=== PATIENT | female | born 1995 | race Caucasian/White ===

== ENCOUNTER 2016-07-16 13:11 | Observation (INO) ==
[2016-07-16 13:37] LABS: Basophils # 0.1 K/mcL (0.0-0.2); Basophils % 0.6 %; Eosinophils # 0.2 K/mcL (0.0-0.6); Eosinophils % 2.2 %; Hematocrit 39.6 % (35.3-44.9); Hemoglobin 13.6 g/dL (11.5-15.4); Immature Granulocytes % 0.4 % (0-4); Lymphocytes # 3.4 K/mcL (0.6-4.6); Lymphocytes % 42.1 %; Mean Corpuscular HGB Conc 34.3 g/dL (31.6-35.5); Mean Corpuscular Volume 87.4 fL (83.0-100.0); Mean Platelet Volume 9.6 fL (9.4-12.4); Monocytes # 0.6 K/mcL (0.0-1.3); Neutrophils # 3.9 K/mcL (1.6-8.9); Platelet Count 273 K/mcL (140-400); Red Blood Count 4.53 M/mcL (3.82-4.97); Red Cell Distribution Width 13.2 % (11.5-14.5); Segmented Neutrophils % 47.7 %
[2016-07-16 13:51] LABS: Alanine Aminotransferase 10 Units/L (0-55); Albumin 3.8 g/dL (3.5-5.0); Albumin/Globulin Ratio 1.3 (1.1-2.2); Alkaline Phosphatase 54 Units/L (38-126); Aspartate Amino Transferase 11 Units/L (5-34); BUN/Creatinine Ratio 9 (6-26); Bilirubin,Total 0.8 mg/dL (0.2-1.2); Blood Urea Nitrogen 6 mg/dL (7-20); Calcium 9.1 mg/dL (8.6-10.8); Carbon Dioxide 25 mEq/L (19-29); Chloride 106 mEq/L (98-109); Globulin 2.9 g/dL (2.4-3.5); Glucose 102 mg/dL (70-99); Osmolality,Calculated 284 (280-300); Potassium 3.7 mEq/L (3.5-4.5); Sodium 138 mEq/L (136-145); Total Protein 6.7 g/dL (6.0-8.3); eGFR For African Americans > 60 (> 60); eGFR For Non-African Americans > 60 (> 60)
[2016-07-16 14:10] LABS: INR 1.1; Prothrombin Time 11.6 Seconds (9.4-12.1)
[2016-07-16 14:13] LABS: Activated Partial Thrombo Time 30.6 Seconds (26.0-36.0)
--- NOTE | 2016-07-16 16:41 | Emergency Department Note ---
Disposition Clinical Impression: Miscarriage Disposition: Home, Self-Care Condition: Good Instructions: Spontaneous Miscarriage (ED) Reasons to Return/Additional Instructions: Dizziness shortness of breath chest pain worsening symptoms increased bleeding. Any Gen. concerns. If you are going through more than 1 pad per hour over 8 hours, return to the emergency department for reevaluation. Referrals: NO,PCP [Primary Care Provider] - Forms: ED Satisfaction Letter HPI - General Chief complaint: ED Vaginal Bleeding Stated complaint: prego, vaginal bleeding Time Seen by Provider: 07/16/16 13:21 Source: patient Limitations: no limitations Nursing Notes Reviewed: Yes Vital Signs Reviewed: Yes - History of Present Illness HPI Narrative: Concern about status. - Related Data Allergies Allergy/AdvReac Type Severity Reaction Status Date / Time No Known Allergies Allergy Verified 07/16/16 13:24 PMH - Social History Smoking Status: Current every day smoker Alcohol use: Reports: none Drug use: Reports: none Physical Exam - General Limitations: no limitations General appearance: alert - Head Head exam: atraumatic, normocephalic, normal inspection - Eye Eye exam: Present: normal appearance, PERRL, EOMI - ENT ENT exam: normal exam, normal oropharynx, mucous membranes moist - Neck Neck exam: Present: normal inspection, full ROM, trachea midline - Chest Chest inspection: Present: normal inspection, symmetric chest wall rise - Respiratory Respiratory exam: Present: normal lung sounds bilaterally - Cardiovascular Cardiovascular exam: Present: regular rate, normal rhythm, normal heart sounds - Abdominal Exam Abdominal exam: Present: soft, Non-Tender. Absent: tenderness, distention, guarding, rebound, rigidity - Female External Exam: Present: bleeding Speculum Exam: Present: cervical OS closed, vaginal bleeding (Copious amount of vaginal bleeding with multiple large clots.) - Extremities Exam Extremities exam: Present: normal inspection, full ROM. Absent: tenderness, pedal edema - Back Exam Back exam: Present: normal inspection, full ROM. Absent: tenderness - Neurological Exam Neurological exam: Present: alert, oriented X3 - Psychiatric Psychiatric exam: Present: normal affect, normal mood - Skin Skin exam: Present: warm, dry, intact, normal color Course - Consultations Consultation #1: Discussed this patient with DR. Block who is covering for Dr Luo. Advised monitoring the patient if symptoms persist the patient will need further workup. Vital Signs Temperature 98.9 F 07/16/16 13:21 Pulse Rate 95 07/16/16 13:21 Respiratory Rate 20 07/16/16 13:21 Blood Pressure 136/73 07/16/16 13:21 O2 Sat by Pulse Oximetry 100 07/16/16 13:21 Temperature 98.9 F 07/16/16 13:21 Pulse Rate 95 07/16/16 13:21 Respiratory Rate 20 07/16/16 13:21 Blood Pressure 136/73 07/16/16 13:21 O2 Sat by Pulse Oximetry 100 07/16/16 13:21 OB/Uterine Contractions - Differential Diagnosis Likely: premature labor, abruption, ectopic - Lab Data Lab results reviewed: Yes I reviewed the patient's lab results. Result diagrams: 07/16/16 13:30 07/16/16 13:30 Lab Results 07/16/16 07/16/16 07/16/16 Range/Units 13:30 13:30 13:30 WBC 8.1 (4.3-11.1) K/mcL RBC 4.53 (3.82-4.97) M/mcL Hgb 13.6 (11.5-15.4) g/dL Hct 39.6 (35.3-44.9) % MCV 87.4 (83.0-100.0) fL MCH 30.0 (28.0-33.3) pg MCHC 34.3 (31.6-35.5) g/dL RDW 13.2 (11.5-14.5) % Plt Count 273 (140-400) K/mcL MPV 9.6 (9.4-12.4) fL Immature Gran % 0.4 (0-4) % Seg Neutrophils % 47.7 % Lymphocytes % 42.1 % Monocytes % 7.0 % Eosinophils % 2.2 % Basophils % 0.6 % Neutrophils # 3.9 (1.6-8.9) K/mcL Lymphocytes # 3.4 (0.6-4.6) K/mcL Monocytes # 0.6 (0.0-1.3) K/mcL Eosinophils # 0.2 (0.0-0.6) K/mcL Basophils # 0.1 (0.0-0.2) K/mcL PT (9.4-12.1) Seconds INR APTT (26.0-36.0) Seconds Sodium 138 (136-145) mEq/L Potassium 3.7 (3.5-4.5) mEq/L Chloride 106 (98-109) mEq/L Carbon Dioxide 25 (19-29) mEq/L BUN 6 L (7-20) mg/dL Creatinine 0.70 (0.57-1.11) mg/dL Est GFR ( Amer) > 60 (> 60) Est GFR (Non-Af Amer) > 60 (> 60) BUN/Creatinine Ratio 9 (6-26) Glucose 102 H (70-99) mg/dL Calculated Osmolality 284 (280-300) Calcium 9.1 (8.6-10.8) mg/dL Total Bilirubin 0.8 (0.2-1.2) mg/dL AST 11 (5-34) Units/L ALT 10 (0-55) Units/L Alkaline Phosphatase 54 (38-126) Units/L Serum Total Protein 6.7 (6.0-8.3) g/dL Albumin 3.8 (3.5-5.0) g/dL Globulin 2.9 (2.4-3.5) g/dL Albumin/Globulin Ratio 1.3 (1.1-2.2) Beta HCG, Quant 1501 H (0-4) mIU/ml Blood Type A POSITIVE 07/16/16 Range/Units 13:50 WBC (4.3-11.1) K/mcL RBC (3.82-4.97) M/mcL Hgb (11.5-15.4) g/dL Hct (35.3-44.9) % MCV (83.0-100.0) fL MCH (28.0-33.3) pg MCHC (31.6-35.5) g/dL RDW (11.5-14.5) % Plt Count (140-400) K/mcL MPV (9.4-12.4) fL Immature Gran % (0-4) % Seg Neutrophils % % Lymphocytes % % Monocytes % % Eosinophils % % Basophils % % Neutrophils # (1.6-8.9) K/mcL Lymphocytes # (0.6-4.6) K/mcL Monocytes # (0.0-1.3) K/mcL Eosinophils # (0.0-0.6) K/mcL Basophils # (0.0-0.2) K/mcL PT 11.6 (9.4-12.1) Seconds INR 1.1 APTT 30.6 (26.0-36.0) Seconds Sodium (136-145) mEq/L Potassium (3.5-4.5) mEq/L Chloride (98-109) mEq/L Carbon Dioxide (19-29) mEq/L BUN (7-20) mg/dL Creatinine (0.57-1.11) mg/dL Est GFR ( Amer) (> 60) Est GFR (Non-Af Amer) (> 60) BUN/Creatinine Ratio (6-26) Glucose (70-99) mg/dL Calculated Osmolality (280-300) Calcium (8.6-10.8) mg/dL Total Bilirubin (0.2-1.2) mg/dL AST (5-34) Units/L ALT (0-55) Units/L Alkaline Phosphatase (38-126) Units/L Serum Total Protein (6.0-8.3) g/dL Albumin (3.5-5.0) g/dL Globulin (2.4-3.5) g/dL Albumin/Globulin Ratio (1.1-2.2) Beta HCG, Quant (0-4) mIU/ml Blood Type - Radiology Data Radiology results reviewed: Yes I reviewed the patient's radiology results. Obstetrics Ultrasound 07/16/16 15:20 IMPRESSION: Limited transabdominal only examination demonstrates fluid within the endometrial canal and endocervical canal, with echogenic material within the vagina compatible with blood clot and/or expelled products of conception. Soft tissue structure within the endometrial canal may represent remnant of a pole. There is no normal appearing intrauterine gestational sac with pole and yolk sac. These findings are most compatible with spontaneous in progress D/ / Nikhil Manning MD / Nikhil Manning MD Interpreting Provider: Nikhil Manning MD
[2016-07-16 17:50] LABS: Hemoglobin 9.2 g/dL (11.5-15.4)
[2016-07-16] MEDS ORDERED: Ringers Solution, Lactated 1,000 ML ONE (17:59)
[2016-07-16] MEDS ORDERED: 0.9 % Sodium Chloride 2,000 ML ONE (18:08)
--- NOTE | 2016-07-16 18:09 | Emergency Department Note ---
Disposition Clinical Impression: Miscarriage Disposition: Admitted As Inpatient Condition: Good Instructions: Spontaneous Miscarriage (ED) Reasons to Return/Additional Instructions: Dizziness shortness of breath chest pain worsening symptoms increased bleeding. Any Gen. concerns. If you are going through more than 1 pad per hour over 8 hours, return to the emergency department for reevaluation. Referrals: NO,PCP [Primary Care Provider] - Forms: ED Satisfaction Letter HPI - General Chief complaint: ED Vaginal Bleeding Stated complaint: prego, vaginal bleeding Time Seen by Provider: 07/16/16 13:21 Source: patient Limitations: no limitations - History of Present Illness HPI Narrative: Concern about status. Patient presents with complaint of vaginal bleeding that started earlier today. Patient was using the bathroom and she noted that she had some clots in toilet. Patient presented to the emergency department for evaluation. Patient denies any pain denies dizziness. Patient states that when she was going to the triage room she noted that she had increased bleeding. Patient was placed in the bed. She denies vision changes, patient denies any trauma. - Related Data Allergies Allergy/AdvReac Type Severity Reaction Status Date / Time No Known Allergies Allergy Verified 07/16/16 13:24 All systems ED: reviewed and negative except as stated. PMH - Past Medical History RESOURCE MANAGER history: Reports: No RESOURCE MANAGER History - Social History Smoking Status: Current every day smoker Alcohol use: Reports: none Drug use: Reports: none Physical Exam - General Limitations: no limitations General appearance: alert - Head Head exam: atraumatic, normocephalic, normal inspection - Eye Eye exam: Present: normal appearance, PERRL, EOMI - ENT ENT exam: normal exam, normal oropharynx, mucous membranes moist - Neck Neck exam: Present: normal inspection, full ROM, trachea midline - Chest Chest inspection: Present: normal inspection, symmetric chest wall rise - Respiratory Respiratory exam: Present: normal lung sounds bilaterally - Cardiovascular Cardiovascular exam: Present: regular rate, normal rhythm, normal heart sounds - Abdominal Exam Abdominal exam: Present: soft, Non-Tender. Absent: tenderness, distention, guarding, rebound, rigidity Course Course Narrative: Patient was up for discharge. Prior to discharge patient blood pressure systolic dropped in the 80s and heart rate dropped in the 40s. Patient became diaphoretic and pale. I was called to the bedside for evaluation with IV fluids were started and called for RESOURCE MANAGER assistance for this patient. RESOURCE MANAGER came and evaluated the patient determinant that the patient will need to go to the or for D&C. Vital Signs Temperature 98.9 F 07/16/16 13:21 Pulse Rate 95 07/16/16 13:21 Respiratory Rate 20 07/16/16 13:21 Blood Pressure 136/73 07/16/16 13:21 O2 Sat by Pulse Oximetry 100 07/16/16 13:21 Temperature 98.9 F 07/16/16 13:21 Pulse Rate 87 07/16/16 16:39 Respiratory Rate 18 07/16/16 16:39 Blood Pressure 122/67 07/16/16 16:39 O2 Sat by Pulse Oximetry 97 07/16/16 16:39 OB/Uterine Contractions - Differential Diagnosis Likely: hemorrhage - Lab Data Result diagrams: 07/16/16 17:40 07/16/16 13:30 Lab Results 07/16/16 07/16/16 07/16/16 Range/Units 13:30 13:30 13:30 WBC 8.1 (4.3-11.1) K/mcL RBC 4.53 (3.82-4.97) M/mcL Hgb 13.6 (11.5-15.4) g/dL Hct 39.6 (35.3-44.9) % MCV 87.4 (83.0-100.0) fL MCH 30.0 (28.0-33.3) pg MCHC 34.3 (31.6-35.5) g/dL RDW 13.2 (11.5-14.5) % Plt Count 273 (140-400) K/mcL MPV 9.6 (9.4-12.4) fL Immature Gran % 0.4 (0-4) % Seg Neutrophils % 47.7 % Lymphocytes % 42.1 % Monocytes % 7.0 % Eosinophils % 2.2 % Basophils % 0.6 % Neutrophils # 3.9 (1.6-8.9) K/mcL Lymphocytes # 3.4 (0.6-4.6) K/mcL Monocytes # 0.6 (0.0-1.3) K/mcL Eosinophils # 0.2 (0.0-0.6) K/mcL Basophils # 0.1 (0.0-0.2) K/mcL PT (9.4-12.1) Seconds INR APTT (26.0-36.0) Seconds Sodium 138 (136-145) mEq/L Potassium 3.7 (3.5-4.5) mEq/L Chloride 106 (98-109) mEq/L Carbon Dioxide 25 (19-29) mEq/L BUN 6 L (7-20) mg/dL Creatinine 0.70 (0.57-1.11) mg/dL Est GFR ( Amer) > 60 (> 60) Est GFR (Non-Af Amer) > 60 (> 60) BUN/Creatinine Ratio 9 (6-26) Glucose 102 H (70-99) mg/dL Calculated Osmolality 284 (280-300) Calcium 9.1 (8.6-10.8) mg/dL Total Bilirubin 0.8 (0.2-1.2) mg/dL AST 11 (5-34) Units/L ALT 10 (0-55) Units/L Alkaline Phosphatase 54 (38-126) Units/L Serum Total Protein 6.7 (6.0-8.3) g/dL Albumin 3.8 (3.5-5.0) g/dL Globulin 2.9 (2.4-3.5) g/dL Albumin/Globulin Ratio 1.3 (1.1-2.2) Beta HCG, Quant 1501 H (0-4) mIU/ml Miscellaneous Test Blood Type A POSITIVE Antibody Screen TNP Crossmatch See Detail 07/16/16 07/16/16 07/16/16 Range/Units 13:50 17:00 17:40 WBC (4.3-11.1) K/mcL RBC (3.82-4.97) M/mcL Hgb 9.2 L D (11.5-15.4) g/dL Hct 27.0 L (35.3-44.9) % MCV (83.0-100.0) fL MCH (28.0-33.3) pg MCHC (31.6-35.5) g/dL RDW (11.5-14.5) % Plt Count (140-400) K/mcL MPV (9.4-12.4) fL Immature Gran % (0-4) % Seg Neutrophils % % Lymphocytes % % Monocytes % % Eosinophils % % Basophils % % Neutrophils # (1.6-8.9) K/mcL Lymphocytes # (0.6-4.6) K/mcL Monocytes # (0.0-1.3) K/mcL Eosinophils # (0.0-0.6) K/mcL Basophils # (0.0-0.2) K/mcL PT 11.6 (9.4-12.1) Seconds INR 1.1 APTT 30.6 (26.0-36.0) Seconds Sodium (136-145) mEq/L Potassium (3.5-4.5) mEq/L Chloride (98-109) mEq/L Carbon Dioxide (19-29) mEq/L BUN (7-20) mg/dL Creatinine (0.57-1.11) mg/dL Est GFR ( Amer) (> 60) Est GFR (Non-Af Amer) (> 60) BUN/Creatinine Ratio (6-26) Glucose (70-99) mg/dL Calculated Osmolality (280-300) Calcium (8.6-10.8) mg/dL Total Bilirubin (0.2-1.2) mg/dL AST (5-34) Units/L ALT (0-55) Units/L Alkaline Phosphatase (38-126) Units/L Serum Total Protein (6.0-8.3) g/dL Albumin (3.5-5.0) g/dL Globulin (2.4-3.5) g/dL Albumin/Globulin Ratio (1.1-2.2) Beta HCG, Quant (0-4) mIU/ml Miscellaneous Test Blood Type Antibody Screen Crossmatch Critical Care Time Total Critical Care Time: 30 Attestation: Critical care performed: Time is exclusive of separately billable procedures. Time includes: direct patient care, patient reassessment, coordination of patient care, interpretation of data (laboratory data, radiology data, and respiratory data), review of patient's medical records, medical consultation and documentation of patient care. Procedures included in critical care time: Procedures excluded from critical care time:
--- NOTE | 2016-07-16 18:20 | OB/GYN History & Physical ---
Date of Encounter: 07/16/16 Time of Encounter: 18:17 Assessment and Plan (1) Miscarriage Current visit: Yes Status: Acute 20yo F, , appx 10wks gestation. Serum B-HCG 1501. Hypotensive with systolic in the 90's. Fluid responsive. Patient had 2L complete with 3rd L hanging upon entering OR suite. Initial H&H 13.6. Appx 4 hours later, repeat H&H 9.2. Type & Screen completed. Plan for emergent suction D&C. Consent obtained and on file. History of Present Illness Chief complaint: vaginal bleeding HPI: Ms. May is a 20 year old female who presented from home to [facility] ER with CC: vaginal bleeding, concern regarding status. . Appx 10 weeks gestation. Has not yet established with OB for care. Patient and her had been trying to become for appx 2 years. Initial H&H in the ER was Hb 13.6. B-HCG 1501. Ultrasound was limited 2/2 fluid in endometrial and endocervical canal. Patient was initially stable. Just prior to discharge from the ER, she became bradycardic in the mid 30's, pale, diaphoretic, hypotensive in the high 80's systolic. ER took measures to stabilize and OB was paged stat to her room. Speculum exam in the ER showed profuse bright red blood with large clot. After discussing with the patient, it was agreed upon to move to an emergent D&C. Patient received to labor and delivery from [facility] ER. HR on transfer was in the low 90's, BP was 91 systolic after 1L IVF with 2nd and 3rd liters hanging. Patient taken directly into L&D OR for suction D&C. Past Med Surg Social Fam HX - Past Medical History Medical history: no medical history Psychiatric history: no psych history - Social History Smoking Status: Current every day smoker Smokeless Tobacco Status: No Alcohol use: none Drug use: none Medications and Allergies Allergies No Known Allergies Allergy (Verified 07/16/16 13:24) Review of System OB - Constitutional Constitutional ROS IM: lethargy, no headache(s) - Nose, mouth, and throat Nose, mouth and throat: no dizziness - Cardiovascular Cardiovascular: diaphoresis, no chest pain, no dyspnea, no edema, no palpitations - Gastrointestinal Gastrointestinal: no abdominal pain, no constipation, no cramping, no diarrhea, no heartburn, no nausea, no vomiting - Genitourinary Genitourinary: abnormal vaginal bleeding, no dysuria, no flank pain Exam - Vital Signs Vital signs: Initial Vital Signs Temp Pulse Resp BP Pulse Ox 98.9 F 95 20 136/73 100 07/16/16 13:21 07/16/16 13:21 07/16/16 13:21 07/16/16 13:21 07/16/16 13:21 - Constitutional Constitutional: well developed, well nourished, moderate distress (hypotensive with IVF resuscication ongoing during exam), other (flush, pale) - HEENT HEENT: Normocephaly, Mucus Membranes Moist - Neck Neck exam: normal inspection - Lungs Respiratory exam: CTAB - Cardiovascular Cardiovascular exam: RRR, +S1, +S2 - Abdomen Abdomen: Present: bowel sounds normal, non tender. Absent: guarding noted - Extremities Extremities exam: normal inspection, radial pulses palpable and symetrical - Vulva Vulva: bilateral: normal - Vagina Vagina: Present: discharge (liquid bright red blood with slightly larger than golf-ball sized clot) - Cervix Cervix: Present: discharge (bright red blood with clots) - Anus/Rectum Anus/Rectum: Present: normal perianal skin Results Result Diagrams: 07/16/16 17:40 07/16/16 13:30 Abnormal lab results Hgb 9.2 g/dL (11.5-15.4) L D 07/16/16 17:40 Hct 27.0 % (35.3-44.9) L 07/16/16 17:40 BUN 6 mg/dL (7-20) L 07/16/16 13:30 Glucose 102 mg/dL (70-99) H 07/16/16 13:30 Beta HCG, Quant 1501 mIU/ml (0-4) H 07/16/16 13:30 All other labs normal. US - abdomen: report reviewed, image reviewed
[2016-07-16] MEDS ORDERED: Ipratropium/Albuterol Neb 3 ML ONE (18:39)
[2016-07-16] MEDS ORDERED: Ipratropium/Albuterol Neb 3 ML IH ONE (18:39)
[2016-07-16] MEDS ORDERED: Ondansetron 4 MG/2 ML VIAL ONE (18:56)
[2016-07-16] MEDS ORDERED: Lidocaine -MPF 2% 5 ML VIAL INFILT ONE (18:56)
[2016-07-16] MEDS ORDERED: *HR* Succinylcholine 200 MG/10 ML VIAL IVP ONE (18:56)
[2016-07-16] MEDS ORDERED: *HR* FentaNYL (PF) 250 MCG/5 ML VIAL ONE (18:56)
[2016-07-16] MEDS ORDERED: Dexamethasone 4 MG/ML VIAL ONE (18:56)
[2016-07-16] MEDS ORDERED: *HR* HYDROcodone/Acet 5/325 mg TABLET PO ONE (19:18)
[2016-07-16] MEDS ORDERED: Ibuprofen 600 MG TABLET PO PRN (19:19)
[2016-07-16] MEDS ORDERED: Propofol 500 MG/50 ML INFUS..BTL ONE (19:20)
--- NOTE | 2016-07-16 19:25 | OB/GYN Procedure Note ---
Suction D&C - Diagnosis Date of procedure: 07/16/16 Pre-op diagnosis: incomplete , other (Acute hemorrhage, orthostasis) Post-op diagnosis: same - Procedure Procedure: suction D&C Surgeon: Niels Luo Anesthesia Type: General Estimated blood loss (cc): 150 Complications: none Fluids: crystalloid Specimen: products of conception Disposition: other (Labor and delivery PACU) Narrative: Patient is a 20-year-old 1 para 0 female approximately 8-10 weeks gestation presented emergency room was diagnosed with incomplete . Ultrasound, showed collapsing gestational sac. She was stable with hemoglobin 13.1 cm discharged for outpatient follow-up and she begin having acute hemorrhage became diaphoretic pale increasingly hypotensive and tachycardic. Exam revealed bright red vaginal bleeding with large clots in the vagina decision was made to proceed with emergent suction D&C. She had 2 large-bore IVs in place and she was typed and crossed for 2 units. Admitting hemoglobin was drawn and was later found to be 9.2. Patient was aware operative risks and signed appropriate consent. Description of procedure: Patient was taken operating room where general anesthesia was administered she was prepped and draped in usual sterile fashion bladder was drained of clear urine. Suction was used to suction several cc of blood clot from the vagina. 8 mm suction curet was passed through the cervix after placement single tooth tenaculum on the cervix. 8 mm suction curet was passed several times revealing pratt and laureano tissue as well as clot. Gentle sharp curettage was performed revealing smooth uterine cavity. Suction curettage was then performed again several times revealing typical blood clot. This point tenaculum was removed hemostasis was ensured. All sponge and counts are correct patient was taken recovery in good condition.
--- NOTE | 2016-07-16 19:28 | Discharge Summary ---
Outpatient Proc Discharge Plan - Plan Prescriptions: Ibuprofen [Motrin] 600 mg PO Q6HR PRN #30 tablet PRN Reason: post op pain HYDROcodone/Acet 5/325 mg [[place] 5-325 mg] 1 tab PO Q4H PRN #20 tab PRN Reason: post op pain Home Medications: HYDROcodone/Acet 5/325 mg [[place] 5-325 mg] 1 tab PO Q4H PRN #20 tab 07/16/16 [Rx ] Ibuprofen [Motrin] 600 mg PO Q6HR PRN #30 tablet 07/16/16 [Rx]
[2016-07-16] MEDS ORDERED: Ringers Solution, Lactated 1,000 ML IVC SCH (19:30)
[2016-07-16 21:53] LABS: Hemoglobin 9.8 g/dL (11.5-15.4)
[2016-07-16 22:19] VITALS: BP 116/56
[2016-07-16] MEDS ORDERED: Methylergonovine 0.2 MG/ML AMPUL IM ONE (23:14)
== END 2016-07-16 23:15 | disposition home or self-care (01) ==
LOC: EMEROO 13:11 → 1NENULAB 13:11 → 1NENUOBS 20:02
PROVIDERS: ADMIT Obstetrics & Gynecology; ATTEND Obstetrics & Gynecology

== ENCOUNTER → 2017-06-08 12:06 | Observation (INO) ==
--- NOTE | 2017-06-08 11:40 | OB/GYN Progress Note ---
Date of Encounter: 06/08/17 Time of Encounter: 11:35 - Assessment and Plan (1) 31 weeks gestation of Current Visit: Yes Status: Acute Observation and continuous monitoring (2) Twin gestation in third trimester Current Visit: Yes Status: Acute Continuous monitoring Patient is to see MF next week d/t twin gestation Qualifiers: Multiple gestation type: monochorionic and diamniotic Qualified Code(s): O30.033 - Twin , monochorionic/diamniotic, third trimester (3) Heartburn during in third trimester Current Visit: Yes Status: Acute GI cocktail given with effective results Will Rx pepcid. Patient informed to use Tums OTC if problem persists To call LABORATORY CHEMICAL ASSISTANT for continued discomfort that Pepcis/ Tums does not resolve. Discharge home. Subjective - Subjective Principal diagnosis: Abdominal pain Interval history: Aylin is a 21 year-old who presents today at 31w5d for complaint of upper abdominal pain that started today. She states it is a burning, intermittent pain just below the sternum. Patient states she has never had heartburn so she is unsure if that could be the cause of the pain. She did not take anything like Tylenol of Tums to attempt to ease the pain. Aylin was given a GI cocktail at 1100 and reports not feeling the burning pain since then. She has an appointment with [facility] next Sunday d/t twin gestation. Aylin was informed of the s/s of heartburn and that she could try Tums OTC and if the issue continues she should consult Dr. Block. Antepartum ROS: movement normal, no loss of fluid, no vaginal bleeding, no contractions Objective - Vital Signs Vital Signs: Intake and Output 06/07/17 06/08/17 06/08/17 23:59 07:59 15:59 Other: Weight 100.891 kg Patient Weight 06/08/17 23:59 Weight 100.891 kg - Exam FHR: category 1 FHR comments: A: 150 BPM moderate variability B: 125 BPM moderate variability Auscultation: bilateral: wheezes (Patient is a smoker) Abdomen: Present: normal appearance, soft, gravid Uterus: Present: normal Cervical dilation: Deferred
[~2017-06-08 12:06] MED LIST: GI Cocktail 40 ML EACH PO ONE
== END | disposition home or self-care (01) ==
LOC: 1NENULAB
PROVIDERS: ADMIT Obstetrics & Gynecology; ATTEND Obstetrics & Gynecology

== ENCOUNTER 2017-06-12 04:50 | Inpatient (IN) ==
[2017-06-12] MEDS ORDERED: Ringers Solution, Lactated 1,000 ML ONE ×2 (05:01→06:05)
[2017-06-12] MEDS ORDERED: Ringers Solution, Lactated 1,000 ML IVC SCH ×2 (05:30→11:38)
--- NOTE | 2017-06-12 05:39 | OB/GYN History & Physical ---
Date of Encounter: 06/12/17 Time of Encounter: 05:29 Assessment and Plan (1) Decreased movement affecting management of in third trimester Current visit: Yes Status: Acute NST Vaginal Exam Urinalysis and reflex culture IV Fluids Anticipate discharge home with labor precautions Follow up in office as scheduled and PRN Qualifiers: Fetus number: fetus 2 of multiple gestation Qualified Code(s): O36.8132 - Decreased movements, third trimester, fetus 2 (2) 32 weeks gestation of Current visit: Yes Status: Acute (3) Twin gestation in third trimester Current visit: No Status: Acute Qualifiers: Multiple gestation type: monochorionic and diamniotic Qualified Code(s): O30.033 - Twin , monochorionic/diamniotic, third trimester History of Present Illness Chief complaint: Decreased movement HPI: Ms. May is a 21 year old at 32 weeks and 2 days gestation. This is a Denali/Di twin with female fetuses. She has had no complications with this . She is seen by Dr Block and [facility]. The most recent ultrasound with MFM showed concordant growth without evidence of TTT/TAPS. She states she has had decreased movement for the past 24 hours. She admitted to smoking a cigarette prior to her arrival to the hospital. She denies headache, vision changes, epigastric pain, leaking of fluid, vaginal bleeding, contractions, and cramping. She states that she does have a dull suprapubic pressure. Past Med Surg Social Fam HX - Past Medical History Medical history: no medical history Psychiatric history: no psych history - Past Surgical History Surgical History: no surgical history - Social History Smoking Status: Current every day smoker Smokeless Tobacco Status: No Alcohol use: none Drug use: none Obstetrical History - Pregnancies : 2 Para: 0 Term: 0 : 0 Ab's: 1 Livin Medications and Allergies HYDROcodone/Acet 5/325 mg [[place] 5-325 mg] 1 tab PO Q4H PRN #20 tab 07/16/16 [Rx ] Ibuprofen [Motrin] 600 mg PO Q6HR PRN #30 tablet 07/16/16 [Rx] Famotidine [Pepcid] 10 mg PO BID #60 tablet 06/08/17 [Rx] 3 Allergy/AdvReac Type Severity Reaction Status Date / Time No Known Allergies Allergy Verified 07/16/16 13:24 Review of System OB All systems PM: reviewed and no additional remarkable complaints except as stated Exam - Constitutional Constitutional: well developed, well nourished, no acute distress, obese - HEENT HEENT: Normocephaly, Mucus Membranes Moist - Lungs Respiratory exam: CTAB - Cardiovascular Cardiovascular exam: RRR - Abdomen Abdomen: Present: gravid, non tender - Extremities Extremities exam: normal capillary refill, normal inspection, radial pulses palpable and symmetrical Deep Tendon Reflex Grade: 2+ Normal - Comments Comments: Dr Crabtree presents to the room for bedside ultrasound for verification of heart rates Twin A FHTs 140's Twin B FHTs 140's Results All other labs normal. - VTE Reasons for not Prescribing Prophylaxis: Treatment not Indicated - Low risk for VTE
[2017-06-12 06:23] LABS: Bilirubin,Urine Negative (Negative); Blood,Urine Negative (Negative); Clarity,Urine Cloudy (Clear); Color,Urine Yellow (Yellow); Glucose,Urine (UA) Normal (Normal); Ketones,Urine Negative (Negative); Leukocyte Esterase,Urine Small (Negative); Nitrite,Urine Negative (Negative); Protein,Urine Negative (Neg-Trace); Urobilinogen,Urine Normal (Normal)
[2017-06-12 06:28] LABS: Amphetamine Screen,Urine Negative ng/mL (Cutoff=1000); Barbiturate Screen,Urine Negative ng/mL (Cutoff=200); Benzodiazepines Screen,Urine Negative ng/mL (Cutoff=200); Cannabinoid Screen,Urine Negative ng/mL (Cutoff = 50); Cocaine Screen,Urine Negative ng/mL (Cutoff= 300); Opiate Screen,Urine Negative ng/mL (Cutoff=300); Phencyclidine Screen,Urine Negative ng/mL (Cutoff=25)
[2017-06-12 06:34] LABS: Bacteria,Urine Many per hpf (None-Few); Hyaline Casts,Urine None Seen per lpf (None-Few); RBC,Urine 0-3 per hpf (0-3); Squamous Epithelial Cell,Urine Many per lpf (None-Few); WBC,Urine 15-30 per hpf (0-3)
--- NOTE | 2017-06-12 07:45 | OB Labor Progress Note ---
Date of Encounter: 06/12/17 Time of Encounter: 07:45 Labor Progress Note - Subjective Subjective: Patient states she is getting very uncomfortable his been spent cervical change. heart tones Nexplanon reassuring twin A is 140s with loss of beat -to-beat variability during the is 140s with repetitive variable decelerations. Patient does not want a vaginal delivery and with the category 2 strip recommended section. I did not feel trying to control her contractions with magnesium sulfate is appropriate due to nonreassuring heart tones on both a and B with decreased movement. Patient will be scheduled for primary low transverse section - Cervix Cervix: 3/80/0 Vtx/Vtx by US - Heart Tones Heart Tones: Twin A heart tones 140s decreased [id number]-kk-ldcm variability 2140s with repetitive decelerations on able to determine the type due to difficulty monitoring contractions. - Armorel Armorel: Contractions every 2 minutes - Plan Plan: Operative the patient for primary low transverse section
[2017-06-12] MEDS ORDERED: *HR* Phenylephrine 10 MG/ML VIAL ONE (07:51)
[2017-06-12] MEDS ORDERED: *HR* Oxytocin 10 UNIT/ML VIAL IM ONE ×2 (07:51→12:25)
[2017-06-12] MEDS ORDERED: Metoclopramide 10 MG/2 ML VIAL IVP ONE (07:53)
[2017-06-12] MEDS ORDERED: Famotidine 20 MG/2 ML VIAL IVP ONE (07:53)
[2017-06-12] MEDS ORDERED: *HR* FentaNYL (PF) 100 MCG/2 ML VIAL ONE (07:56)
[2017-06-12] MEDS ORDERED: Morphine Sulfate/PF 5mg/10mL Vial ONE ×2 (07:56→12:30)
[2017-06-12 08:13] LABS: Basophils # 0.1 K/mcL (0.0-0.2); Basophils % 0.6 %; Eosinophils # 0.1 K/mcL (0.0-0.6); Eosinophils % 0.9 %; Hematocrit 35.7 % (35.3-44.9); Immature Granulocytes % 1.2 % (0-4); Lymphocytes # 3.4 K/mcL (0.6-4.6); Lymphocytes % 21.2 %; Mean Corpuscular HGB Conc 33.6 g/dL (31.6-35.5); Mean Corpuscular Hemoglobin 29.3 pg (28.0-33.3); Mean Corpuscular Volume 87.3 fL (83.0-100.0); Mean Platelet Volume 11.3 fL (9.4-12.4); Monocytes # 1.4 K/mcL (0.0-1.3); Neutrophils # 10.7 K/mcL (1.6-8.9); Platelet Count 344 K/mcL (140-400); Red Blood Count 4.09 M/mcL (3.82-4.97); Red Cell Distribution Width 12.9 % (11.5-14.5); Segmented Neutrophils % 67.1 %
[2017-06-12] MEDS ORDERED: Ringers Solution, Lactated 2,000 ML ONE (08:26)
[2017-06-12] MEDS ORDERED: EPHEDrine 50 MG/ML VIAL ONE (08:28)
[2017-06-12] MEDS ORDERED: Dexamethasone 4 MG/ML VIAL ONE (08:50)
[2017-06-12] MEDS ORDERED: Ondansetron 4 MG/2 ML VIAL ONE (08:50)
--- NOTE | 2017-06-12 09:07 | Anesthesia Evaluation PreOp ---
Date of Encounter: 06/12/17 Time of Encounter: 08:00 - Past History Planned Operation: PCS TWINS Cardiac History: Denies any Significant Hx Pulmonary History: Smoker COAL FEEDER OPERATOR History: Denies Any Significant HX Other Medical History: Denies Any Significant HX Anesthesia History: No Prior Anesthetic Complications : Yes Test: Positive Alcohol Use: none Drug use: none Medications and Allergies Famotidine [Pepcid] 10 mg PO BID #60 tablet 06/08/17 [Rx] Vit/Iron Fumarate/FA [ Tablet] 1 tab PO DAILY 06/12/17 [History ] 3 Allergy/AdvReac Type Severity Reaction Status Date / Time No Known Allergies Allergy Verified 06/12/17 06:13 - Meds/Allergy Pre-op Review Medications Reviewed: Yes Allergies Reviewed: Yes Beta Blockers on Current Med List: No Anesthesia Results - Labs 06/12/17 05:00 Anesthesia Exam Height: 69 Weight: 1.7 NPO (# of Hours): MN Pain Scale: 0 - HEENT Pupil (Motor): Pupils equal Mallampati: II Teeth: Poor dentition Oral Opening: Greater than 3 - COAL FEEDER OPERATOR LOC: Oriented COAL FEEDER OPERATOR Motor: Normal RUE, Normal LUE, Normal RLE, Normal LLE, Normal Face COAL FEEDER OPERATOR Sensory: Normal: RUE, LUE, RLE, LLE, Face - Cardiac Rhythm: Regular Murmur: None JVD: No Carotid Bruit: No - Pulmonary Breath Sounds: bilateral Clear Respiratory Effort: Symmetrical Anesthesia Assess/Plan ASA Score: 2 Modified Roz Scale for Level of Consciousness: Cooperative, oriented, and tranquil Anesthetic Plan: MAC Monitoring Plan: Standard Monitors Recovery Plan: PACU
[2017-06-12] MEDS ORDERED: *HR* OxyCODONE/APAP 5/325 TABLET PO PRN (09:09)
[2017-06-12] MEDS ORDERED: Naloxone 0.4 MG/ML INJ IVP PRN (09:09)
[2017-06-12] MEDS ORDERED: Ibuprofen 400 MG TABLET PO PRN (09:09)
[2017-06-12] MEDS ORDERED: *HR* HYDROmorphone 2 MG TABLET PO PRN (09:13)
[2017-06-12] MEDS ORDERED: *HR* Morphine 2 MG/ML SYRINGE IVP PRN (09:15)
--- NOTE | 2017-06-12 09:23 | OB/GYN Procedure Note ---
Section - Date of procedure: 06/12/17 Preop diagnosis: other (Intrauterine at 32-2/7 weeks, decreased movement,Dupage/Di Twins, category 2 strip with decelerations twin B no variability twin A) Post-op diagnosis: same Procedure: primary low transverse Surgeon: Sukhi Muñoz Estimated blood loss (cc): 500 Was there an campaign assistant present: Yes Supervising Chef: Joby Reich ([facility]) Anesthesiologist: Christiana Ortega Instructional Technology Facilitator: Enid Kline Anesthesia Type: Spinal section complications: none Disposition: L&D Recovery Room Specimens: Placenta - (s) Infant A Delivery Date: 06/12/17 Infant Delivery Time: 08:39 Presentation: vertex Position: ROP Gender: Female Viability: Viable Gram Weight: 1.37 kg at 1 minute: 2 at 5 minutes: 6 at 10 minutes: 7 Shoulder Dystocia: not encountered Specimens collected: cord blood, venous cord gases, arterial cord gases Placenta: spontaneous Cord: 3 umbilical vessels B Infant Delivery Date: 06/12/17 Delivery Time: 08:39 Presentation: vertex Position: MANDEEP Gender: Female Viability: Viable Gram Weight: 2.28 kg at 1 minute: 1 at 5 minutes: 2 at 10 minutes: 3 Shoulder Dystocia: not encountered Specimens collected: cord blood, venous cord gases, arterial cord gases Placenta: spontaneous Cord: 3 umbilical vessels - Narrative Narrative: Patient is a 21-year-old 2 para 1 at 32-2/7 weeks twin gestation who presented to labor and delivery with complaint of decreased movement. Patient states she had not felt babies move in 24 hours. Patient is a known gestation mono/di patient has not had a recent growth ultrasound last one was canceled due to the weather. She was scheduled tomorrow. Patient was noted to have decelerations of twin B and twin A still became very flat samuel every 2-3 minutes becoming uncomfortable and was making cervical change. She did not want a vaginal delivery wanted a section even though babies were vertex vertex. Because twin B did not look well did not offer us vaginal delivery anyway recommended proceeding on for emergent section. Procedure: Patient was taken operating room where spinal anesthesia was found be adequate. She was placed in dorsal supine position prepped and draped in usual fashion. Timeout was obtained. A phanensteil incision was made with a scalpel and carried down through the underlying tissue to the fascia was identified. Fascia was nicked in midline extended laterally with the Ruelas scissors. The superior and inferior edges of the fascia grasped tented up dissected off the rectus muscles. Rectus muscles were in midline parietal peritoneum was identified tented up and entered sharply. This is extended superiorly and inferiorly with Metzenbaum scissors. Bladder blade was inserted the vesicouterine peritoneum was identified tented up and entered sharply. Bladder flap was created digitally delivery uterine segment was then incised with a scalpel and extended laterally with digital manipulation. Membranes were ruptured this time twin A was then delivered cord was clamped and cut infant was handed off to waiting pediatric team. Twin B was sitting right there it was immediately delivered the cord was cut and handed off to waiting pediatric team. Cord gases were obtained for both a and B. Placenta was delivered spontaneously with a three-vessel cord, uterus was exteriorized and cleaned of all clots and debris and then the lower uterine segment was closed using 3-0 Vicryl in a running locking stitch by 2 layer closure. Good hemostasis was noted uterus was returned to the abdomen gutters were cleaned of all clots and debris then copiously irrigated. The fascia was closed using a # 1 stratafix in running stitch the subcutaneous tissue was closed using a 0 chromic and skin was closed using marielle. A michael dressing was then applied and the patient was taken to the recovery room in stable condition. All needles lap sponge counts were correct 3 she did receive preoperative antibiotics.
[2017-06-12] MEDS ORDERED: Oxytocin 20 units/ LR 1000 mL 20 UNIT/1,000 ML BAG IVC SCH (11:38)
[2017-06-12] MEDS ORDERED: Sennosides 8.6 MG TABLET PO PRN (11:38)
[2017-06-12] MEDS ORDERED: Ibuprofen 600 MG TABLET PO PRN (11:38)
[2017-06-12] MEDS ORDERED: *HR* OxyCODONE/APAP 10/325 TABLET PO PRN (11:38)
[2017-06-12] MEDS ORDERED: Simethicone 80 MG TAB.CHEW PO PRN (11:38)
[2017-06-12] MEDS ORDERED: Ondansetron 4 MG/2 ML VIAL IVP PRN (11:38)
[2017-06-12] MEDS ORDERED: Metoclopramide 10 MG/2 ML VIAL IVP PRN (11:38)
[2017-06-12] MEDS: *HR* OxyCODONE/APAP 5/325 TABLET PO PRN (18:29)
[2017-06-12] MEDS: Famotidine 20 MG TABLET PO SCH (20:13)
[2017-06-13] MEDS: *HR* OxyCODONE/APAP 5/325 TABLET PO PRN (02:25)
[2017-06-13 04:52] LABS: Basophils # 0.1 K/mcL (0.0-0.2); Basophils % 0.4 %; Eosinophils # 0.1 K/mcL (0.0-0.6); Eosinophils % 0.5 %; Hematocrit 31.6 % (35.3-44.9); Hemoglobin 10.9 g/dL (11.5-15.4); Immature Granulocytes % 0.9 % (0-4); Lymphocytes # 3.7 K/mcL (0.6-4.6); Lymphocytes % 22.3 %; Mean Corpuscular HGB Conc 34.5 g/dL (31.6-35.5); Mean Corpuscular Hemoglobin 30.4 pg (28.0-33.3); Mean Platelet Volume 10.7 fL (9.4-12.4); Monocytes # 1.5 K/mcL (0.0-1.3); Monocytes % 8.8 %; Neutrophils # 11.3 K/mcL (1.6-8.9); Platelet Count 288 K/mcL (140-400); Red Blood Count 3.59 M/mcL (3.82-4.97); Red Cell Distribution Width 12.7 % (11.5-14.5); Segmented Neutrophils % 67.1 %
[2017-06-13] MEDS: Famotidine 20 MG TABLET PO SCH (08:19)
[2017-06-13 08:39] VITALS: BP 120/69
[2017-06-13] MEDS ORDERED: NON-FORMULARY MEDICATION 1 EACH EACH (Prenatal Vit/Iron Fumarate/Fa [Prenatal Tablet] 1 TA PO SCH (09:00)
[2017-06-13] MEDS ORDERED: Prenatal Vit/FA 1 EACH TABLET PO SCH (09:00)
--- NOTE | 2017-06-13 10:29 | Discharge Summary ---
Date of Encounter: 06/13/17 Time of Encounter: 10:26 - Discharge Diagnosis (1) Status post delivery Priority: Primary Status: Acute Comments: Routine care. Meeting day one milestones. Pain well controlled. Patient may decide for discharge today so she can go be with her babies [facility] today if patient decides to leave. (2) Breast feeding status of mother Priority: Secondary Status: Acute Comments: support prn Patient pumping currently. - Discharge Medications Prescriptions: OxyCODONE/APAP 5/325 [Percocet 5/325 MG] 1 each PO Q4HR PRN 5 Days #30 tablet PRN Reason: Moderate pain 4-6 Ibuprofen [Motrin] 600 mg PO Q6HR PRN #60 tablet PRN Reason: Cramping Docusate [Colace] 100 mg PO BID #30 capsule Home Medications: Famotidine [Pepcid] 10 mg PO BID #60 tablet 06/08/17 [Rx] Vit/Iron Fumarate/FA [ Tablet] 1 tab PO DAILY 06/12/17 [History ] Docusate [Colace] 100 mg PO BID #30 capsule 06/13/17 [Rx] Ibuprofen [Motrin] 600 mg PO Q6HR PRN #60 tablet 06/13/17 [Rx] OxyCODONE/APAP 5/325 [Percocet 5/325 MG] 1 each PO Q4HR PRN 5 Days #30 tablet [Rx] Allergies/Adverse Reactions: 3 Allergy/AdvReac Type Severity Reaction Status Date / Time No Known Allergies Allergy Verified 06/12/17 06:13 Data Procedures and tests throughout hospitalization: Laboratory Tests 06/12/17 06/12/17 06/12/17 05:00 06:11 06:11 WBC 16.0 H RBC 4.09 Hgb 12.0 Hct 35.7 MCV 87.3 MCH 29.3 MCHC 33.6 RDW 12.9 Plt Count 344 MPV 11.3 Immature Gran % 1.2 Seg Neutrophils % 67.1 Lymphocytes % 21.2 Monocytes % 9.0 Eosinophils % 0.9 Basophils % 0.6 Neutrophils # 10.7 H Lymphocytes # 3.4 Monocytes # 1.4 H Eosinophils # 0.1 Basophils # 0.1 Urine Color Yellow Urine Clarity Cloudy A Urine pH 7.0 Ur Specific [place] 1.010 Urine Protein Negative Urine Glucose (UA) Normal Urine Ketones Negative Urine Blood Negative Urine Nitrite Negative Urine Bilirubin Negative Urine Urobilinogen Normal Ur Leukocyte Esterase Small H Urine Microscopic RBC 0-3 Urine Microscopic WBC 15-30 H Ur Squamous Epith Cells Many H Urine Bacteria Many H Hyaline Casts None Seen Ur Culture Indicated? NO. Urine Opiates Screen Negative Ur Barbiturates Screen Negative Ur Phencyclidine Scrn Negative Ur Amphetamines Screen Negative U Benzodiazepines Scrn Negative Urine Cocaine Screen Negative U Marijuana (THC) Screen Negative 06/13/17 04:13 WBC 16.8 H RBC 3.59 L Hgb 10.9 L Hct 31.6 L MCV 88.0 MCH 30.4 MCHC 34.5 RDW 12.7 Plt Count 288 MPV 10.7 Immature Gran % 0.9 Seg Neutrophils % 67.1 Lymphocytes % 22.3 Monocytes % 8.8 Eosinophils % 0.5 Basophils % 0.4 Neutrophils # 11.3 H Lymphocytes # 3.7 Monocytes # 1.5 H Eosinophils # 0.1 Basophils # 0.1 Urine Color Urine Clarity Urine pH Ur Specific [place] Urine Protein Urine Glucose (UA) Urine Ketones Urine Blood Urine Nitrite Urine Bilirubin Urine Urobilinogen Ur Leukocyte Esterase Urine Microscopic RBC Urine Microscopic WBC Ur Squamous Epith Cells Urine Bacteria Hyaline Casts Ur Culture Indicated? Urine Opiates Screen Ur Barbiturates Screen Ur Phencyclidine Scrn Ur Amphetamines Screen U Benzodiazepines Scrn Urine Cocaine Screen U Marijuana (THC) Screen Labs on day of discharge: Labs from last 24 hours 06/13/17 04:13 WBC 16.8 H RBC 3.59 L Hgb 10.9 L Hct 31.6 L MCV 88.0 MCH 30.4 MCHC 34.5 RDW 12.7 Plt Count 288 MPV 10.7 Immature Gran % 0.9 Seg Neutrophils % 67.1 Lymphocytes % 22.3 Monocytes % 8.8 Eosinophils % 0.5 Basophils % 0.4 Neutrophils # 11.3 H Lymphocytes # 3.7 Monocytes # 1.5 H Eosinophils # 0.1 Basophils # 0.1 Date of admission: 06/12/17 04:50 Primary care physician: PCP NONE Consults: 06/12/17 11:38 Consult to Ice Cream Scooper (W&C) [CONS] Routine Reason For Exam: Reason for SW Consult: 32 weeks twins, twin B was not doing well might be transferred to [facility] Discharging clinician: Mikayla Villalobos Anticipated date of discharge: 06/13/17 - Patient Status Disposition: Home, Self-Care Condition: Good Functional capacity at discharge: independent ambulation Overall status at discharge: patient is progressing back to baseline - Discharge Instructions Follow Up With: NONE,PCP [Primary Care Provider] - Sukhi Muñoz DO [Partnered Physician] - - Diet and Activity Activity: resume usual activities as tolerated Diet: regular diet Hospital Course Procedures: section Reason for admission: active labor, labor Delivery: section Episiotomy: none Laceration: none Other procedures: none complications: none Discharge diagnosis: delivery [place] baby: female Hospital course: Section - Date of procedure: 06/12/17 Preop diagnosis: other (Intrauterine at 32-2/7 weeks, decreased movement,[place]/Di Twins, category 2 strip with decelerations twin B no variability twin A) Post-op diagnosis: same Procedure: primary low transverse Surgeon: Sukhi Muñoz Estimated blood loss (cc): 500 Was there an assistant federal public defender present: Yes Inspector Subassemblies: Joby Reich ([facility]) Anesthesiologist: Christiana Ortega Mobility Scooter Repairer: Enid Kline Anesthesia Type: Spinal section complications: none Disposition: L&D Recovery Room Specimens: Placenta - Infant (s) A Infant Delivery Date: 06/12/17 Delivery Time: 08:39 Presentation: vertex Position: ROP Gender: Female Viability: Viable Gram Weight: 1.37 kg at 1 minute: 2 at 5 minutes: 6 at 10 minutes: 7 Shoulder Dystocia: not encountered Specimens collected: cord blood, venous cord gases, arterial cord gases Placenta: spontaneous Cord: 3 umbilical vessels B Delivery Date: 06/12/17 Infant Delivery Time: 08:39 Presentation: vertex Position: MANDEEP Gender: Female Viability: Viable Gram Weight: 2.28 kg at 1 minute: 1 at 5 minutes: 2 at 10 minutes: 3 Shoulder Dystocia: not encountered Specimens collected: cord blood, venous cord gases, arterial cord gases Placenta: spontaneous Cord: 3 umbilical vessels - Narrative Narrative: Patient is a 21-year-old 2 para 1 at 32-2/7 weeks twin gestation who presented to labor and delivery with complaint of decreased movement. Patient states she had not felt babies move in 24 hours. Patient is a known gestation mono/di patient has not had a recent growth ultrasound last one was canceled due to the weather. She was scheduled tomorrow. Patient was noted to have decelerations of twin B and twin A still became very flat samuel every 2-3 minutes becoming uncomfortable and was making cervical change. She did not want a vaginal delivery wanted a section even though babies were vertex vertex. Because twin B did not look well did not offer us vaginal delivery anyway recommended proceeding on for emergent section. Procedure: Patient was taken operating room where spinal anesthesia was found be adequate. She was placed in dorsal supine position prepped and draped in usual fashion. Timeout was obtained. A phanensteil incision was made with a scalpel and carried down through the underlying tissue to the fascia was identified. Fascia was nicked in midline extended laterally with the Ruelas scissors. The superior and inferior edges of the fascia grasped tented up dissected off the rectus muscles. Rectus muscles were in midline parietal peritoneum was identified tented up and entered sharply. This is extended superiorly and inferiorly with Metzenbaum scissors. Bladder blade was inserted the vesicouterine peritoneum was identified tented up and entered sharply. Bladder flap was created digitally delivery uterine segment was then incised with a scalpel and extended laterally with digital manipulation. Membranes were ruptured this time twin A was then delivered cord was clamped and cut infant was handed off to waiting pediatric team. Twin B was sitting right there it was immediately delivered the cord was cut and handed off to waiting pediatric team. Cord gases were obtained for both a and B. Placenta was delivered spontaneously with a three-vessel cord, uterus was exteriorized and cleaned of all clots and debris and then the lower uterine segment was closed using 3-0 Vicryl in a running locking stitch by 2 layer closure. Good hemostasis was noted uterus was returned to the abdomen gutters were cleaned of all clots and debris then copiously irrigated. The fascia was closed using a # 1 stratafix in running stitch the subcutaneous tissue was closed using a 0 chromic and skin was closed using marielle. A michael dressing was then applied and the patient was taken to the recovery room in stable condition. All needles lap sponge counts were correct 3 she did receive preoperative antibiotics. Time Attestation: Total time spent providing and/or coordinating discharge services: Time Spent: Less than 30 minutes - VTE Reasons for not Prescribing Prophylaxis: Treatment not Indicated - Low risk for VTE Documentation of Mechanical Device: Intermittent pneumatic compression device Exam - Constitutional Vitals: Temp Pulse Resp BP Pulse Ox 98.1 F 80 16 120/69 98 06/13/17 08:00 06/13/17 08:00 06/13/17 08:00 06/13/17 08:00 06/13/17 08:00 General appearance IM: A&O X 3 - Respiratory Respiratory exam: Present: decreased breath sounds, wheezes Additional comments: SPO2 99% on room air - Cardiovascular Cardiovascular exam IM: Present: RRR, +S1, +S2 - GI/Abdominal GI/Abdominal exam IM: normal bowel sounds, soft Incision: dressed (michael) - Rectal Rectal exam: deferred - External exam: normal external exam, swelling Uterine Tone: Firm Uterus Position: 2 Fingers Below Umbilicus - Extremities Exam Extremities exam IM: Present: full ROM, normal capillary refill, normal inspection - Neurological Exam Neurological exam: alert, normal gait, oriented X3 - Other Additional findings: [facility] report reviewed by Anna Glasgow CNM
== END 2017-06-13 11:15 | disposition home or self-care (01) | DRG 540 ==
LOC: 1NENULAB → OBSVTOIN 04:50 → 1NENUOBS 11:33
PROVIDERS: ADMIT Advanced Practice Midwife; ATTEND Advanced Practice Midwife

== ENCOUNTER 2020-11-08 09:24 | Observation (INO) ==
[2020-11-08 10:19] LABS: Basophils # 0.1 K/mcL (0.0-0.2); Basophils % 0.8 %; Eosinophils # 0.2 K/mcL (0.0-0.6); Eosinophils % 2.6 %; Hematocrit 41.9 % (35.3-44.9); Hemoglobin 14.4 g/dL (11.5-15.4); Immature Granulocytes % 0.2 % (0-4); Lymphocytes # 2.6 K/mcL (0.6-4.6); Lymphocytes % 40.5 %; Mean Corpuscular HGB Conc 34.4 g/dL (31.6-35.5); Mean Corpuscular Hemoglobin 30.9 pg (28.0-33.3); Mean Corpuscular Volume 89.9 fL (83.0-100.0); Mean Platelet Volume 9.9 fL (9.4-12.4); Monocytes # 0.4 K/mcL (0.0-1.3); Monocytes % 6.2 %; Neutrophils # 3.2 K/mcL (1.6-8.9); Platelet Count 260 K/mcL (140-400); Red Blood Count 4.66 M/mcL (3.82-4.97); Red Cell Distribution Width 12.5 % (11.5-14.5); Segmented Neutrophils % 49.7 %; White Blood Count 6.5 K/mcL (4.3-11.1)
[2020-11-08 10:24] LABS: Bacteria,Urine Few per hpf (None-Few); Bilirubin,Urine Negative (Negative); Blood,Urine Negative (Negative); Clarity,Urine Clear (Clear); Color,Urine Light-Yellow (Yellow); Glucose,Urine (UA) Normal (Normal); Ketones,Urine Negative (Negative); Leukocyte Esterase,Urine Trace (Negative); Mucus,Urine Few per lpf (None-Few); Nitrite,Urine Negative (Negative); PH,Urine 6.5 pH Units (5.0-8.0); Protein,Urine Trace mg/dL (Neg-Trace); RBC,Urine 0-3 per hpf (0-3); Specific Gravity,Urine 1.028 (1.010-1.025); Squamous Epithelial Cell,Urine Few per hpf (None-Few); Urobilinogen,Urine Normal (Normal); WBC,Urine 0-3 per hpf (0-3)
[2020-11-08 10:40] LABS: Alanine Aminotransferase 11 Units/L (7-52); Albumin 4.2 g/dL (3.5-5.7); Albumin/Globulin Ratio 1.6 (1.1-2.2); Alkaline Phosphatase 65 Units/L (34-104); Aspartate Amino Transferase 10 Units/L (13-39); BUN/Creatinine Ratio 16 (6-26); Bilirubin,Direct 0.1 mg/dL (0.0-0.2); Bilirubin,Indirect 0.3 mg/dL (0.0-1.0); Bilirubin,Total 0.4 mg/dL (0.3-1.0); Blood Urea Nitrogen 11 mg/dL (6-20); Calcium 9.6 mg/dL (8.6-10.3); Carbon Dioxide 26 mEq/L (23-29); Chloride 107 mEq/L (98-107); Globulin 2.6 g/dL (2.4-3.5); Glucose 91 mg/dL (70-105); Lipase 21 Units/L (11-82); Osmolality,Calculated 283 (280-300); Potassium 3.9 mEq/L (3.5-5.1); Sodium 137 mEq/L (136-145); Total Protein 6.8 g/dL (6.4-8.9); eGFR For African Americans > 60 (> 60); eGFR For Non-African Americans > 60 (> 60)
[2020-11-08] MEDS ORDERED: Isovue-370 500 ML BOTTLE IVP ONE (12:11)
[2020-11-08] MEDS ORDERED: Naloxone 0.4 MG/ML INJ IVP PRN ×2 (13:37→18:11)
[2020-11-08] MEDS ORDERED: *HR* HYDROcodone/Acet 5/325 mg TABLET PO PRN ×2 (13:39→18:11)
[2020-11-08] MEDS ORDERED: Ondansetron 4 MG/2 ML VIAL IVP PRN ×4 (14:29→18:11)
[2020-11-08] MEDS ORDERED: 0.9 % Sodium Chloride 1,000 ML IVC SCH ×2 (14:30→18:11)
[2020-11-08] MEDS ORDERED: *HR* Midazolam HCl 2 MG/2 ML VIAL ONE (15:09)
[2020-11-08] MEDS ORDERED: Lidocaine -MPF 2% 2 ML VIAL ONE (15:11)
[2020-11-08] MEDS ORDERED: *HR* Rocuronium Bromide 50 MG/5 ML VIAL ONE (15:11)
[2020-11-08] MEDS ORDERED: *HR* FentaNYL (PF) 100 MCG/2 ML VIAL ONE (15:11)
[2020-11-08] MEDS ORDERED: *HR* Succinylcholine 200 MG/10 ML VIAL IVP ONE (15:11)
[2020-11-08] MEDS ORDERED: Lidocaine HCL 4 ML Topical Solution (Laryng-O-Jet Kit Sterile Pak) TP ONE (15:11)
[2020-11-08] MEDS ORDERED: *HR* Propofol 200 MG/20 ML VIAL IVP ONE (15:11)
[2020-11-08] MEDS ORDERED: CefOXitin 1,000 MG VIAL ONE (15:19)
[2020-11-08] MEDS ORDERED: Lidocaine -MPF 2% 5 ML VIAL ONE (15:38)
[2020-11-08] MEDS ORDERED: CefOXitin 2,000 MG VIAL ONE (15:51)
[2020-11-08] MEDS ORDERED: Isovue-300 50ML VIAL ONE (15:54)
[2020-11-08] MEDS ORDERED: Ipratropium Neb 0.5 MG NEBULIZER IH PRN ×2 (15:55→18:11)
[2020-11-08] MEDS ORDERED: Albuterol 2.5 MG/3 ML NEBULIZER IH PRN ×2 (15:55→18:11)
[2020-11-08] MEDS ORDERED: Ondansetron 4 MG/2 ML VIAL ONE (16:16)
[2020-11-08] MEDS ORDERED: Acetaminophen IV 1,000 MG/100 ML BAG IVPB ONE (16:40)
[2020-11-08] MEDS ORDERED: Ketorolac 30 MG/ML VIAL ONE (16:41)
[2020-11-08] MEDS ORDERED: Neostigmine Methylsulfate 3 MG/3 ML SYRINGE ONE (16:48)
[2020-11-08] MEDS: *HR* FentaNYL (PF) 100 MCG/2 ML VIAL IVP PRN ×3 (17:10→17:20)
[2020-11-08] MEDS: *HR* HYDROmorphone PF 0.5 MG/0.5 ML SYRINGE IVP PRN ×2 (17:29→17:36)
[2020-11-08] MEDS ORDERED: *HR* HYDROmorphone PF 0.5 MG/0.5 ML SYRINGE IVP PRN (18:11)
[2020-11-08] MEDS ORDERED: *HR* FentaNYL (PF) 100 MCG/2 ML VIAL IVP PRN (18:11)
[2020-11-09] MEDS ORDERED: *HR* HYDROcodone/Acet 5/325 mg TABLET PO PRN (06:00)
[2020-11-09 07:25] VITALS: O2SAT 95
[2020-11-09 07:27] VITALS: BP 111/70; PULSE 76; TEMP 97.7
[2020-11-09] MEDS ORDERED: Ibuprofen 800 MG TABLET PO SCH (08:22)
== END 2020-11-09 10:39 | disposition home or self-care (01) ==
LOC: 3BNU 09:24 → EMEROOARM 09:24 → SUATTDRO 13:38 → 3BNU 14:11
PROVIDERS: ADMIT Pharmacist; ATTEND Internal Medicine